=== PATIENT | female | born 1985 | race Caucasian/White ===

== ENCOUNTER 2020-04-07 00:47 | Emergency (ER) | payer MEDICAID ==
[2020-04-07] MEDS ORDERED: Propofol 200 MG/20 ML SDV IVPUSH ONE (01:10)
[2020-04-07] MEDS ORDERED: HYDROmorphone 1 MG/ML Syringe IVPUSH ONE (01:14)
--- NOTE | 2020-04-07 02:25 | EDM.PDOC ---
ED HPI GENERAL MEDICAL PROBLEM - General Chief Complaint: Lower Extremity Injury/Pain Stated Complaint: MEDICAL [facility]IA [facility] Time Seen by Provider: 04/07/20 01:50 Source of Information: Reports: Patient, EMS History Limitations: Reports: No Limitations - History of Present Illness INITIAL COMMENTS - FREE TEXT/NARRATIVE: 35-year-old female arrives by EMS with "left hip dislocation". This is the second time this has happened to her this year. It is a recurring problem since her pelvis "" during childbirth. She arrives with her hip abducted and flexed with her knee flexed, and will not allow anyone to move her leg. Onset: Sudden Duration: Hour(s): (Occurred 1 hour ago) Location: Reports: Lower Extremity, Left Associated Symptoms: Reports: No Other Symptoms Treatments FIXED INCOME DIRECTOR: Reports: See EMS Report Left Hip Pain Score (Numeric/FACES): 8 - Related Data Allergies Allergy/AdvReac Type Severity Reaction Status Date / Time cephalexin [From Keflex] Allergy Rash Verified 04/07/20 01:01 ketorolac [From Toradol] Allergy Anaphylactic Verified 04/07/20 01:01 Shock Penicillins Allergy Rash Verified 04/07/20 01:01 prochlorperazine Allergy Agitation Verified 04/07/20 01:01 [From Compazine] sumatriptan [From Imitrex] Allergy Rash Verified 04/07/20 01:01 Home Meds: Home Meds FLUoxetine HCl [Prozac] 80 mg PO DAILY 04/07/20 [History] Past Medical History 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: Reports: Other Musculoskeletal History: hip dislocation; pelvic issues Social & Family History - Tobacco Use Smoking Status *Q: Never Smoker - Caffeine Use Caffeine Use: Reports: Soda - Recreational Drug Use Recreational Drug Use: No Review of Systems - Review of Systems Review Of Systems: See Below Respiratory: Reports: No Symptoms Cardiovascular: Reports: No Symptoms Skin: Reports: No Symptoms ED EXAM, GENERAL - Physical Exam Exam: See Below Exam Limited By: No Limitations General Appearance: Alert, Moderate Distress, Other (Patient appears significantly uncomfortable, she is already had 2 mg of IV Dilaudid in route) Head: Atraumatic Respiratory/Chest: No Respiratory Distress Extremities: Other (Left lower extremity is externally rotated, hip and flexed, knee is lax, and she will not allow any palpation or movement of the hip) Neurological: Alert, Oriented, Other (Distal sensation is intact) Psychiatric: Anxious Skin Exam: Warm, Dry Course - Vital Signs Last Recorded V/S: Last Vital Signs Temp 98.2 F 04/07/20 01:02 Pulse 100 04/07/20 01:02 Resp 18 04/07/20 01:02 BP 144/85 H 04/07/20 01:02 Pulse Ox 98 04/07/20 01:02 - Orders/Labs/Meds Orders: Active Orders 24 hr Category Date Time Status Hip Min 1V Lt [CR] Stat Exams 04/07/20 01:09 Taken Hip Min 2V or 3V Lt [CR] Stat Exams 04/07/20 01:45 Taken Meds: Medications Discontinued Medications Generic Name Dose Route Start Last Admin Trade Name Lauro PRN Reason Stop Dose Admin Hydromorphone HCl 1 mg 04/07/20 01:14 04/07/20 01:20 Dilaudid IVPUSH 04/07/20 01:15 1 mg ONETIME ONE Administration Propofol 200 mg 04/07/20 01:10 04/07/20 01:51 Diprivan 20 Ml IVPUSH 04/07/20 01:11 200 mg ONETIME ONE Administration - Re-Assessments/Exams Free Text/Narrative Re-Assessment/Exam: 04/07/20 02:22 An additional 1 mg of IV Dilaudid was given and we attempted to do a pre- reduction hip x-ray. She would not tolerate movement of the hip, so she was prepared for reduction under propofol anesthesia. After 120 mg of propofol her leg was straightened, an additional 20 mg was given for a total of 140. I did not feel the hip reduced but an x-ray done after the leg was straightened did not show hip dislocation. It was confirmed with a two-view hip x-ray as well. Patient was able to ambulate after she recovered from the anesthesia. She was asking for more pain medication, is allergic to Toradol and all anti- inflammatories and a [employer] search showed she was recently on Suboxone. I was uncomfortable giving her any more narcotic medication as she has already had 3 mg of IV Dilaudid and the hip is in place. She can recheck with her primary providers when she is home tomorrow. Departure - Departure Time of Disposition: 02:43 Disposition: Home, Self-Care 01 Clinical Impression: Recurrent dislocation, left hip - Discharge Information Instructions: Hip Dislocation Referrals: PCP,None [Primary Care Provider] - Forms: ED Department Discharge Care Plan Goals: Increase activity as tolerated, avoid external rotation and flexion of the left hip until seen by orthopedics which should be done soon as possible. Sepsis Event Note (ED) - Evaluation Sepsis Screening Result: No Definite Risk - Focused Exam Vital Signs: Vital Signs Temp Pulse Resp BP Pulse Ox 04/07/20 01:02 98.2 F 100 18 144/85 H 98 - My Orders Last 24 Hours: My Active Orders 04/07/20 01:09 Hip Min 1V Lt [CR] Stat 04/07/20 01:45 Hip Min 2V or 3V Lt [CR] Stat - Assessment/Plan Last 24 Hours: My Active Orders 04/07/20 01:09 Hip Min 1V Lt [CR] Stat 04/07/20 01:45 Hip Min 2V or 3V Lt [CR] Stat
--- NOTE | 2020-04-07 08:58 | CR ---
Hip Min 2V or 3V Lt CLINICAL HISTORY: Dislocation FINDINGS: Limited portable view of the left hip shows no fracture or dislocation. IMPRESSION: Negative Hip Min 1V Lt, Hip Min 2V or 3V Lt CLINICAL HISTORY: Postreduction FINDINGS: No fracture or dislocation is identified. Study is limited by portable technique and patient body habitus. IMPRESSION: No fracture or dislocation
== END 2020-04-07 02:43 | disposition home or self-care (01) ==
LOC: JP.ED 00:47
DX: M24.452 Recurrent dislocation, left hip (principal); Z88.1 Allergy status to other antibiotic agents; Z88.0 Allergy status to penicillin; Z88.6 Allergy status to analgesic agent; Z88.8 Allergy status to other drugs, medicaments and biological substances; Z79.899 Other long term (current) drug therapy
CPT/HCPCS: 27250; 73501; 73502; 96374; 99284; J1170; J2704; 27252; 99283